=== PATIENT | male | born 1995 | race Caucasian/White ===

== ENCOUNTER 2016-08-04 14:19 | Emergency (ER) | payer BC ==
[2016-08-04 14:42] VITALS: BP 128/75
[2016-08-04] MEDS ORDERED: Diphtheria,Pertussis(Acell),Tetanus Vaccine 0.5 ML SDV IM ONE (14:48)
[2016-08-04] MEDS ORDERED: Bacitracin Oint 1 GM U/D Packet TOP ONE (14:48)
--- NOTE | 2016-08-04 15:03 | EDM.PDOC ---
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 Seen by Provider: 08/04/16 14:44 Source of Information: Reports: Patient, RN Notes Reviewed History Limitations: Reports: No Limitations - History of Present Illness INITIAL COMMENTS - FREE TEXT/NARRATIVE: 20-year-old gentleman presents emergency department today with a laceration to his right index finger, he accidentally caught the pad of his index finger in between a garden yusuf, this happened while he was at work he was able to control the bleeding prior to presentation he has full range of motion of all digits no other complaints - Related Data Allergies Allergy/AdvReac Type Severity Reaction Status Date / Time No Known Allergies Allergy Verified 08/04/16 14:36 Home Meds: Home Meds NK [No Known Home Meds] 08/04/16 [History] Past Medical History - Past Surgical History HEENT Surgical History: Reports: Adenoidectomy, Tonsillectomy GI Surgical History: Reports: Other (See Below) Social & Family History - Tobacco Use Smoking Status *Q: Never Smoker ED ROS GENERAL - Review of Systems Review Of Systems: See Below Constitutional: Reports: No Symptoms Skin: Reports: Wound Neurological: Reports: No Symptoms ED EXAM, SKIN/RASH Exam: See Below Text/Narrative:: Examination of the right hand reveals full range of motion of all digits radial pulses 2+ the distal aspect of digit #2 palmar surface shows a skin flap approximately 2 cm semicircular Exam Limited By: No Limitations General Appearance: Alert, WD/WN, No Apparent Distress ED SKIN PROCEDURES - Laceration/Wound Repair Right Finger Lac/wound length in cm: 3 Appearance: subcutaneous Distal NVT: neuro & vascular intact, no tendon injury Anesthetic Type: digital Local anesthesia - Lidocaine (Xylocaine): 1% plain Local anesthetic volume: 3cc Skin prep: chlorhexidine (hibiciens) Saline irrigation (cc's): 20 Exploration/Debridement/Repair: wound explored, in a bloodless field, explored to base Closed with: sutures Suture size: 4-0 # of sutures: 5 Suture type: nylon, interrupted Sterile dressing applied: nurse Tetanus status addressed: Yes Complications: No Course - Vital Signs Last Recorded V/S: Last Vital Signs Temp 98.1 F 08/04/16 14:41 Pulse 85 08/04/16 14:41 Resp 14 08/04/16 14:41 BP 128/75 08/04/16 14:41 Pulse Ox - Orders/Labs/Meds Orders: Active Orders 24 hr Category Date Time Status Vaccines to be Administered [RC] PER UNIT ROUTINE Care 08/04/16 14:48 Active Meds: Medications Discontinued Medications Generic Name Dose Route Start Last Admin Trade Name Kayla PRN Reason Stop Dose Admin Bacitracin 1 dose 08/04/16 14:48 08/04/16 14:56 Bacitracin Oint 1 Gm TOP 08/04/16 14:49 1 dose ONETIME ONE Administration Diphtheria/Tetanus/Acell Pertussis 0.5 ml 08/04/16 14:48 08/04/16 14:57 Adacel IM 08/04/16 14:49 0.5 ml .ONCE ONE Administration Lidocaine HCl 5 ml 08/04/16 14:48 08/04/16 14:56 Xylocaine-Mpf 1% INJECT 08/04/16 14:49 5 ml ONETIME ONE Administration Departure - Departure Time of Disposition: 15:44 Disposition: Home, Self-Care 01 Condition: good Clinical Impression: Laceration of right index finger - Discharge Information Forms: ED Department Discharge Additional Instructions: suture removal in 10 days, follow wound care instruction sheet, followup with your primary care at that time call return to the ED with worsening of symptoms - My Orders Last 24 Hours: My Active Orders 08/04/16 14:48 Vaccines to be Administered [RC] PER UNIT ROUTINE - Assessment/Plan Last 24 Hours: My Active Orders 08/04/16 14:48 Vaccines to be Administered [RC] PER UNIT ROUTINE Plan: Assessment Acuity = acute Site and laterality = 3 cm semicircular laceration palmar surface distal tip of digit #2 Etiology = secondary to trauma with a garden shear Manifestations = none Location of injury = [facility] Lab values = none Plan Suture removal in 10 days, followup with primary care Patient was in agreement with the plan all questions were answered, they were instructed to return to the emergency department or call for worsening symptoms. This note was dictated using [employer] voice recognition software please call with any questions.
== END 2016-08-04 16:11 | disposition home or self-care (01) ==
LOC: JP.ED 14:19
DX: S61.210A Laceration without foreign body of right index finger without damage to nail, initial encounter (principal); Z98.890 Other specified postprocedural states; W27.1XXA Contact with garden tool, initial encounter
CPT/HCPCS: 12002; 90471; 90715; 99283-25; A4217